=== PATIENT | female | born 1960 | race Two or more races ===

== ENCOUNTER → 2018-12-06 | Outpatient (CLI) | payer OTHER ==
--- NOTE | 2018-12-06 10:39 | RAD ---
Lumbar spine, 2 views, 12/06/2018: HISTORY: Chronic back pain, disability determination The lumbar vertebral heights are well-maintained. There is moderate disc space narrowing and marginal spurring at L5-S1. Additional scattered spurs are present in the remainder of the lumbar spine. There are moderate degenerative changes involving the facet joints in the lower lumbar spine with a slight associated anterolisthesis at L4-5. No fracture is evident. Moderate aortic calcific plaquing is present. IMPRESSION: 1. Moderate scattered degenerative changes as described above. 2. Slight anterolisthesis at L4-5 due to facet joint arthropathy. Electronically signed by: Andres Subramanian MD (12/06/2018 10:35 AM) [facility]
== END | disposition home or self-care (01) ==
LOC: RAD 10:05
PROVIDERS: ATTEND Surgery
DX: M47.896 Other spondylosis, lumbar region (principal); M12.88 Other specific arthropathies, not elsewhere classified, other specified site; M48.061 Spinal stenosis, lumbar region without neurogenic claudication
CPT/HCPCS: 72100